=== PATIENT | female | born 1980 | race Two or more races ===

== ENCOUNTER 2018-04-06 06:10 | Day surgery (SDC) | payer OTHER ==
[2018-04-06] MEDS ORDERED: SODIUM CHLORIDE 1,000 ML IV STA (06:38)
--- NOTE | 2018-04-06 06:38 | PDOC ---
History of Present Illness - General Chief Complaint: Pain Stated Complaint: ABDOMINAL PAIN Time Seen by Provider: 04/06/18 06:38 History Source: Patient - History of Present Illness Initial Comments: 04/06/18 06:52 37-year-old female with history of lap band placed 10 years ago complaining of nausea vomiting and epigastric and upper abdominal pain for 4 days.Patient reports that pain is worse after eating. Patient is currently being evaluated for gastric sleeve surgery and was sent by surgeon Dr. STANTON evaluation. Denies chest pain, diaphoresis, dizziness, urinary symptoms, flank pain, fevers/chills Past medical history: Asthma, tubal ligation 04/06/18 06:54 Past History - Past Medical History Allergies/Adverse Reactions: Allergies Allergy/AdvReac Type Severity Reaction Status Date / Time No Known Allergies Allergy Verified 04/06/18 06:31 Home Medications: Ambulatory Orders Famotidine [Pepcid] 20 mg PO BID #60 tablet 04/06/18 Oxycodone HCl/Acetaminophen [Percocet 5-325 mg Tablet] 1 - 2 tab PO Q6H #28 tab MDD 4 04/06/18 COPD: No Other medical history: DENIES - Reproductive History Is Patient Now?: No - Suicide/Smoking/Psychosocial Hx Smoking History: Never smoked Review of Systems - Review of Systems Able to Perform ROS?: Yes Is the patient limited Finnish proficient: No Constitutional: No: Symptoms Reported, See HPI, Chills, Diaphoresis, Fever, Loss of Appetite, Malaise, Night Sweats, Weakness, Weight Stable, Unintentional Wgt. Loss, Unexplained wgt Loss, Other ABD/GI: Yes: Nausea, Vomiting, Abdominal cramping. No: Symptoms Reported, See HPI, Abdominal Distended, Abd. Pain w/ defecation, Blood Streaked Bowels, Constipated, Diarrhea, Difficulty Swallowing, Poor Appetite, Poor Fluid Intake, Rectal Bleeding, Indigestion, Tarry Stools, Other : No: Symptoms Reported, See HPI, Burning, Dysuria, Discharge, Frequency, Flank Pain, Hematuria, Incontinence, Pain, Urgency, Testicular Mass, Testicular Swelling, Lesions, Testicular Pain, Other Musculoskeletal: No: Symptoms Reported, See HPI, Back Pain, Gout, Joint Pain, Joint Swelling, Muscle Pain, Muscle Weakness, Neck Pain, Joint Stiffness, Other *Physical Exam - Vital Signs Last Vital Signs Temp Pulse Resp BP Pulse Ox 98.0 F 84 18 125/85 100 04/06/18 06:29 04/06/18 06:29 04/06/18 06:29 04/06/18 06:29 04/06/18 06:29 - Physical Exam General Appearance: Yes: Appropriately Dressed Respiratory/Chest: positive: Lungs Clear, Normal Breath Sounds Cardiovascular: positive: Regular Rhythm, Regular Rate Gastrointestinal/Abdominal: positive: Normal Bowel Sounds, Tender (Upper quadrant and epigastric area), Soft Musculoskeletal: positive: Normal Inspection Extremity: positive: Normal Capillary Refill, Normal Inspection, Normal Range of Motion Integumentary: positive: Normal Color, Dry, Warm Neurologic: positive: Fully Oriented, Alert, Normal Mood/Affect ED Treatment Course - LABORATORY CBC & Chemistry Diagram: 04/06/18 20:00 04/06/18 20:00 Progress Note - Progress Note Progress Note: A: ABDOMINAL PAIN p: CBC, CMP LIPASE UA URINE ABDOMINAL U/S: pending 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
[2018-04-06] MEDS ORDERED: ONDANSETRON 4 MG/2 ML VIAL IVPUSH ONE (06:39)
[2018-04-06] MEDS ORDERED: ONDANSETRON 4 MG/2 ML VIAL ONE (06:53)
[2018-04-06 07:01] LABS: URINE APPEARANCE CLEAR; URINE BILIRUBIN NEGATIVE (<2.0 mg/dL); URINE COLOR LTYELLOW; URINE GLUCOSE (UA) NEGATIVE (NEGATIVE); URINE KETONE NEGATIVE (NEGATIVE); URINE LEUK ESTERASE NEGATIVE (NEGATIVE); URINE NITRITE NEGATIVE (NEGATIVE); URINE PROTEIN NEGATIVE (NEGATIVE); URINE UROBILINOGEN NEGATIVE mg/dL (0.2-1.0)
[2018-04-06 07:03] LABS: HCG,QUALITATIVE URINE NEGATIVE
[2018-04-06 07:20] LABS: BASO % 0.7 % (0-2.0); EOS % 3.6 % (0-4.5); HEMATOCRIT 25.3 % (32.4-45.2); HEMOGLOBIN 7.9 GM/dL (10.7-15.3); LYMPH % 23.8 % (8-40); MCHC 31.3 g/dl (32.0-36.0); MEAN PLT VOLUME 7.3 fl (7.5-11.1); MONO % 5.8 % (3.8-10.2); NEUT % 66.1 % (42.8-82.8); PLATELET COUNT 485 K/MM3 (134-434); RBC 3.78 M/mm3 (3.60-5.2); RDW 20.7 % (11.6-15.6); WHITE BLOOD COUNT 8.4 K/mm3 (4.0-10.0)
[2018-04-06 07:20] LABS: EPI CELLS RARE /HPF (FEW); URINE MUCUS RARE
[2018-04-06 07:40] LABS: ALBUMIN 3.4 g/dl (3.4-5.0); ANION GAP 6 (8-16); BILIRUBIN,TOTAL 0.3 mg/dL (0.2-1.0); BLOOD UREA NITROGEN 9 mg/dL (7-18); CALCIUM 9.3 mg/dL (8.5-10.1); CHLORIDE 105 mmol/L (98-107); CO2 27 mmol/L (21-32); CREATININE 0.6 mg/dL (0.55-1.02); GLUCOSE,RANDOM 86 mg/dL (74-106); LIPASE 127 U/L (73-393); SGOT/AST 12 U/L (15-37); SGPT/ALT 17 U/L (12-78); SODIUM 138 mmol/L (136-145); TOT PROT 7.9 g/dl (6.4-8.2)
[2018-04-06 07:44] LABS: ALK PHOS 100 U/L (45-117)
--- NOTE | 2018-04-06 09:33 | PDOC ---
*Physical Exam - Vital Signs Last Vital Signs Temp Pulse Resp BP Pulse Ox 98.0 F 84 18 125/85 100 04/06/18 06:29 04/06/18 06:29 04/06/18 06:29 04/06/18 06:29 04/06/18 06:29 - Physical Exam General Appearance: Yes: Nourished, Appropriately Dressed. No: Apparent Distress ED Treatment Course - LABORATORY CBC & Chemistry Diagram: 04/06/18 06:52 04/06/18 06:52 - ADDITIONAL ORDERS Additional order review: Laboratory Results 04/06/18 04/06/18 06:52 06:40 Sodium 138 Potassium 4.0 Chloride 105 Carbon Dioxide 27 Anion Gap 6 L BUN 9 Creatinine 0.6 Creat Clearance w eGFR > 60 Random Glucose 86 Calcium 9.3 Total Bilirubin 0.3 AST 12 L ALT 17 Alkaline Phosphatase 100 Troponin I < 0.02 Total Protein 7.9 Albumin 3.4 Lipase 127 Urine Color Ltyellow Urine Appearance Clear Urine pH 5.0 Ur Specific [place] 1.018 Urine Protein Negative Urine Glucose (UA) Negative Urine Ketones Negative Urine Blood 1+ H Urine Nitrite Negative Urine Bilirubin Negative Urine Urobilinogen Negative Ur Leukocyte Esterase Negative Urine WBC (Auto) 1 Urine RBC (Auto) 2 Ur Epithelial Cells Rare Urine Mucus Rare Urine HCG, Qual Negative 04/06/18 06:52 RBC 3.78 MCV 67.0 L MCHC 31.3 L RDW 20.7 H MPV 7.3 L Neutrophils % 66.1 Lymphocytes % 23.8 Monocytes % 5.8 Eosinophils % 3.6 Basophils % 0.7 - Medications Given in the ED: ED Medications Discontinued Medications Generic Name Dose Route Start Last Admin Trade Name Freq PRN Reason Stop Dose Admin Sodium Chloride 1,000 mls @ 1,000 mls/hr 04/06/18 06:38 04/06/18 06:57 Normal Saline - IV 04/06/18 07:37 1,000 mls/hr ASDIR STA Administration Ondansetron HCl 4 mg 04/06/18 06:39 04/06/18 06:57 Zofran Injection IVPUSH 04/06/18 06:40 4 mg ONCE ONE Administration Medical Decision Making - Medical Decision Making 04/06/18 07:30 Patient received in sign out from PREMA Lopez. Patient is 37-year-old female status post gastric and pending a gastric sleeve to be performed by Dr. Rosario. Patient was placed for labs and ultrasound. Will call Dr. Rosario once results are reviewed. Patient otherwise comfortable. 04/06/18 09:31 Laboratory Tests 04/06/18 04/06/18 04/06/18 06:40 06:52 06:52 WBC 8.4 Hgb 7.9 L Hct 25.3 L Sodium 138 Potassium 4.0 Chloride 105 Carbon Dioxide 27 Anion Gap 6 L AST 12 L ALT 17 Troponin I < 0.02 Urine Blood 1+ H Ur Leukocyte Esterase Negative Urine WBC (Auto) 1 Urine RBC (Auto) 2 Urine HCG, Qual Negative Call placed to Dr. Rosario. Patient also ordered for type and screen. 04/06/18 09:32 Ultrasound shows hepatomegaly with slight dense and coarse echotexture suggestive of fatty filtration versus hepatocellular disease. Possible tiny gallbladder polyp measuring 2.5 mm. Follow-up ultrasound would be helpful. There is no evidence of acute cholecystitis. 04/06/18 10:[address] Rosario states keep patient nothing by mouth and will add patient to the OR schedule. *DC/Admit/Observation/Transfer Diagnosis at time of Disposition: Abdominal pain Qualifiers: Abdominal location: upper abdomen, unspecified Qualified Code(s): R10.10 - Upper abdominal pain, unspecified - Discharge Dispostion Decision to Admit order: Yes - Referrals Referrals: Reji Dominique [Primary Care Provider] - - Patient Instructions - Post Discharge Activity
[2018-04-06] MEDS ORDERED: SODIUM CHLORIDE 1,000 ML IV ONE (11:22)
[2018-04-06 11:48] VITALS: BMI 49.1
[2018-04-06 11:53] LABS: INR 1.12 (0.82-1.09); PROTHROMBIN TIME (PATIENT) 12.6 SEC (9.7-13.0)
--- NOTE | 2018-04-06 13:06 | HP ---
Admitting History and Physical - Admission Chief Complaint: Nausea, epigastric pain, dysphagia History of Present Illness: 37 female presents to ER for epigastric pain, nausea, dysphagia S/P lap band in the past Having symptoms due to the band History Source: Patient Limitations to Obtaining History: No Limitations - Past Medical History Gastrointestinal: Yes: Other (Morbod obesity) ...: No - Smoking History Smoking history: Never smoked - Alcohol/Substance Use Hx Alcohol Use: No Home Medications - Allergies Allergies/Adverse Reactions: Allergies Allergy/AdvReac Type Severity Reaction Status Date / Time No Known Allergies Allergy Verified 04/06/18 06:31 - Home Medications Home Medications: Ambulatory Orders NK [No Known Home Medication] 04/06/18 Family Disease History - Family Disease History Family History: Unremarkable Review of Systems - Review of Systems Constitutional: denies: Chills, Fever HENT: reports: No Symptoms Neck: reports: No Symptoms Cardiovascular: reports: No Symptoms Respiratory: reports: No Symptoms Gastrointestinal: reports: Abdominal Pain (Epigastric), Dysphagia, Nausea Neurological: reports: No Symptoms Pain Intensity: 4 Physical Examination Vital Signs: Vital Signs Temperature 98.1 F 04/06/18 11:48 Pulse Rate 72 04/06/18 11:48 Respiratory Rate 16 04/06/18 11:48 Blood Pressure 151/89 04/06/18 11:48 O2 Sat by Pulse Oximetry (%) 100 04/06/18 12:03 Constitutional: Yes: Calm HENT: Yes: WNL Neck: Yes: WNL Cardiovascular: Yes: WNL Respiratory: Yes: Regular Gastrointestinal: Yes: Soft, Abdomen, Obese, Tenderness, Epigastrium Neurological: Yes: Alert, Oriented Labs: CBC, BMP 04/06/18 06:52 04/06/18 06:52 Problem List - Problems (1) Nausea Code(s): R11.0 - NAUSEA (2) Dysphagia Code(s): R13.10 - DYSPHAGIA, UNSPECIFIED Qualifiers: Dysphagia type: unspecified Qualified Code(s): R13.10 - Dysphagia, unspecified (3) Epigastric abdominal pain Code(s): R10.13 - EPIGASTRIC PAIN (4) Gastric band malfunction Code(s): K95.09 - OTHER COMPLICATIONS OF GASTRIC BAND PROCEDURE Assessment/Plan Laparoscopic band removal possible open
[2018-04-06] MEDS ORDERED: ONDANSETRON 4 MG/2 ML VIAL IVPB PRN (13:56)
[2018-04-06] MEDS ORDERED: SODIUM CHLORIDE 1,000 ML IV SCH ×2 (14:00→19:15)
[2018-04-06] MEDS ORDERED: fentaNYL CITRATE 250 MCG/5 ML VIAL ONE (15:36)
[2018-04-06] MEDS ORDERED: ROCURONIUM BROMIDE 50 MG/5 ML VIAL ONE ×2 (15:36→18:19)
[2018-04-06] MEDS ORDERED: PROPOFOL 20 ML ONE (15:36)
[2018-04-06] MEDS ORDERED: MIDAZOLAM HCL 2 MG/2 ML SINGLE DOSE VIAL ONE (15:36)
[2018-04-06] MEDS ORDERED: DEXAMETHASONE SOD PHOSPHATE 4 MG/1 ML VIAL ONE ×2 (15:37→18:26)
[2018-04-06] MEDS ORDERED: LIDOCAINE HCL/PF 2% SDV 5ML VIAL ONE (15:37)
[2018-04-06] MEDS ORDERED: ceFAZolin SODIUM 1 GM VIAL ONE (16:55)
[2018-04-06] MEDS ORDERED: ceFAZolin SODIUM 1 GM VIAL IVPB ONE (17:00)
[2018-04-06] MEDS ORDERED: GLYCOPYRROLATE 0.2 MG/1 ML VIAL ONE (18:26)
[2018-04-06] MEDS ORDERED: NEOSTIGMINE METHYLSULFATE 0.5 MG/ML - 10 ML MDV ONE (18:26)
[2018-04-06] MEDS ORDERED: BUPIVACAINE HCL/PF (5 MG/ML) 30 ML VIAL IJ ONE (19:10)
[2018-04-06] MEDS ORDERED: ONDANSETRON 4 MG/2 ML VIAL IVPUSH PRN (19:15)
--- NOTE | 2018-04-06 19:26 | OP ---
Operative Note - Note: Operative Date: 04/06/18 Pre-Operative Diagnosis: Dysphagia. Nausea. Epigastric pain. Malfunctioning gastric band Operation: Diagnostic laparoscopy. Laparoscopic extensive lysis of adhesions. Laparoscopic removal of gastric band, port, and components. EGD Post-Operative Diagnosis: Other (Same as preop as well as dense intraabdominal adhesions) Surgeon: Tejas Rosario Inspector Returned Materials: Princess Acosta Anesthesia: General Specimens Removed: Gastric band, port, and components Estimated Blood Loss (mls): 30 Operative Report Dictated: Yes
[2018-04-06] MEDS ORDERED: PROMETHAZINE HCL 25 MG/1 ML VIAL IVPUSH PRN (19:27)
[2018-04-06] MEDS ORDERED: ACETAMINOPHEN 1000 MG/100 ML VIAL (NON FORMULARY) IVPB ONE (19:45)
--- NOTE | 2018-04-06 20:23 | SURG ---
Surgery Insurance Billing Specialist Note Insurance Billing Specialist: Princess Acosta PA-C Date of Service: 04/06/18 Diagnosis: Dysphagia. Nausea. Epigastric pain. Malfunctioning gastric band Procedure: Diagnostic laparoscopy. Laparoscopic extensive lysis of adhesions. Laparoscopic removal of gastric band, port, and components. EGD I was present for the entirety of the operative procedure. For further detail, please refer to operative report. Visit type - Case Type Case Type: ED Admission - Emergency Emergency Visit: Yes ED Registration Date: 04/06/18 Care time: The patient presented to the Emergency Department on the above date and was hospitalized for further evaluation of their emergent condition. - New patient This patient is new to me today: Yes Date on this admission: 04/06/18
[2018-04-06 20:28] LABS: HEMATOCRIT 25.6 % (32.4-45.2); HEMOGLOBIN 7.7 GM/dL (10.7-15.3); MCH 20.1 pg (25.7-33.7); MCHC 30.2 g/dl (32.0-36.0); MEAN CELL VOLUME 66.8 fl (80-96); MEAN PLT VOLUME 7.1 fl (7.5-11.1); PLATELET COUNT 507 K/MM3 (134-434); RBC 3.84 M/mm3 (3.60-5.2); RDW 20.4 % (11.6-15.6); WHITE BLOOD COUNT 11.6 K/mm3 (4.0-10.0)
[2018-04-06 20:55] LABS: ANION GAP 8 (8-16); BLOOD UREA NITROGEN 8 mg/dL (7-18); CALCIUM 8.8 mg/dL (8.5-10.1); CHLORIDE 105 mmol/L (98-107); CO2 25 mmol/L (21-32); CREATININE 0.7 mg/dL (0.55-1.02); GLUCOSE,RANDOM 114 mg/dL (74-106); POTASSIUM 4.2 mmol/L (3.5-5.1); SODIUM 138 mmol/L (136-145)
[2018-04-06] MEDS: morphine SULFATE 4 MG/ML VIAL IVPUSH PRN (21:47)
[2018-04-06] MEDS ORDERED: ENOXAPARIN NA (PORCINE) 40 MG/0.4 ML DISP.SYRIN SQ ONE (22:00)
[2018-04-06] MEDS ORDERED: FAMOTIDINE 20 MG/50 ML IVPB 20 MG/50 ML MG IVPB SCH (22:00)
[2018-04-07] MEDS: morphine SULFATE 4 MG/ML VIAL IVPUSH PRN (02:01)
--- NOTE | 2018-04-07 07:02 | OP ---
DATE OF OPERATION: 04/06/2018 SURGEON: Daryn Rosario M.D. ALTERATION TAILOR: AMPARO Acosta PREOPERATIVE DIAGNOSES: 1. Dysphagia. 2. Epigastric pain. 3. Nausea. 4. Malfunctioning gastric band. POSTOPERATIVE DIAGNOSES: 1. Dysphagia. 2. Epigastric pain. 3. Nausea. 4. Malfunctioning gastric band. 5. Dense intra-abdominal adhesions. PROCEDURES PERFORMED: 1. Diagnostic laparoscopy. 2. Extensive laparoscopic lysis of adhesions. 3. Laparoscopic removal of gastric band port and components. 4. Laparoscopic capsulotomy. 5. Esophagogastroduodenoscopy. SPECIMEN: Gastric band port and components. ANESTHESIA: GET. ESTIMATED BLOOD LOSS: 30 mL. DRAINS: None. TUBES: An 18-Macedonian OG tube. INDICATIONS: The patient is a 37-year-old female who presented to the emergency room because of abdominal pain, nausea and dysphagia, consistent with a malfunctioning gastric band. Because of this, she was consented for laparoscopic removal of her gastric band, port and components, possible open, with endoscopy. The risks and benefits of the procedure were explained. These included bleeding, infection, hernia, MO, DVT, PE, injury to surrounding structures (including the esophagus, stomach, liver, spleen, colon, other intra-abdominal organs), nerve injury, vessel injury, gastric leak, gastric obstruction, stricture, prolonged dysphagia, epigastric pain and nausea, sepsis, abscess formation, weight regain, as some of the complications. She understood and signed informed consent. DESCRIPTION OF PROCEDURE: The patient was placed supine on the operating room table. She underwent general endotracheal intubation. The abdomen was prepped and draped in the usual sterile fashion. A timeout was performed. An OG tube was placed by Anesthesia to suction the stomach. An incision was made superior and to the left of the umbilicus. A Veress needle inserted and pneumoperitoneum established. Subsequently, the Veress needle was removed, and a 5-mm trocar was placed under direct visualization of the laparoscope. Immediately it was noted that there were dense intra-abdominal adhesions. Because of this, the right lateral trocar attempted to be placed; however, again, because of the lack of visualization, attention was then paid to the right subcostal region. An incision was made at that area and a 5-mm trocar placed. The laparoscope was then moved to that position in order to aid in visualization of the other trocars. The 15-mm trocar was then replaced superior to the left of the umbilicus. A 5-mm trocar was placed superior to the right of the umbilicus, and a 5-mm trocar placed in the right subcostal region. Because of the dense adhesions, a liver retractor was not able to be placed at the beginning of the case. These adhesions were carefully taken down with a combination of scissor, hook electrocautery and LigaSure. This took an extensive period of time. Once all adhesions were taken down, the stomach was able to be identified. There were further dense adhesions up to the level of the liver and abdominal wall that needed further dissection. After these adhesions were taken down, a stab wound was made in the subxiphoid area and a Libby clamp inserted. The Libby clamp was removed and a liver retractor inserted to elevate the liver. This was placed to the post at the side of the bed, and the patient was placed in steep reverse Trendelenburg position. Further dense adhesions were noted again which were carefully taken down. Eventually the band tubing was identified and hook electrocautery used over the level of the band tubing. The band tubing was followed to the level of the band which was noted to have slipped and was densely adherent around the level of the stomach. Carefully, the band was dissected, cut and freed from around the stomach. The band and its attachment components were removed from the abdominal cavity and sent off the field. Hemostasis was noted. Copious irrigation and suction were performed until clear. Surgicel dressing was placed in the area in order to aid with hemostasis. In addition, capsulotomy was performed, freeing the overlying capsule around the stomach, to aid with fraying of the scar tissue from the band. At this point, the Kelvin liver retractor was removed, and the port was palpated below the left subcostal region towards the midline. Pneumoperitoneum was desufflated. All trocars were removed. The port was dissected down to the level of the fascia and fully dissected and removed. All parts were noted to be intact and all parts matched. 3-0 Vicryl suture was placed at the deep dermal tissue at the level of the port. Upper endoscopy was also performed in order to further assess the anatomy. No obstruction or leak was noted during the endoscopy. The endoscope was used to suction the stomach and removed. All skin incisions were closed using 4-0 Biosyn, and Marcaine was injected. Sterile dressings were applied. The patient tolerated this procedure well. The OG tube was removed and she was transferred to the recovery room in stable condition. DARYN ROSARIO M.D. [id number]
[2018-04-07] MEDS ORDERED: ONDANSETRON 4 MG/2 ML VIAL IVPUSH PRN (07:44)
[2018-04-07] MEDS ORDERED: morphine SULFATE 4 MG/ML VIAL IVPUSH PRN (07:44)
[2018-04-07] MEDS ORDERED: SODIUM CHLORIDE 1,000 ML IV SCH (07:44)
--- NOTE | 2018-04-07 08:25 | PN ---
Progress Note (short form) - Note Progress Note: POD #1 - s/p lap gastric band removal under general anesthesia. VSS. Pt. doing well, just coming back from test. No complaints. No apparent anesthetic complications noted. Continue current care.
[2018-04-07 09:18] VITALS: BP 128/83; PULSE 67; TEMP 98.9
[2018-04-07] MEDS ORDERED: FAMOTIDINE 20 MG/50 ML IVPB 20 MG/50 ML MG IVPB SCH (10:00)
--- NOTE | 2018-04-07 13:09 | PN ---
Progress Note (short form) - Note Progress Note: POD 1 Pain controlled AVSS Abd soft UGI: no leak/obstruction Clears Discharge planning Problem List - Problems (1) Nausea Code(s): R11.0 - NAUSEA (2) Dysphagia Code(s): R13.10 - DYSPHAGIA, UNSPECIFIED Qualifiers: Dysphagia type: unspecified Qualified Code(s): R13.10 - Dysphagia, unspecified (3) Epigastric abdominal pain Code(s): R10.13 - EPIGASTRIC PAIN (4) Gastric band malfunction Code(s): K95.09 - OTHER COMPLICATIONS OF GASTRIC BAND PROCEDURE
--- NOTE | 2018-04-08 14:59 | PATH ---
Surgical Pathology Report Patient Name: JOSE KEANE Med. Rec. #: [id number] /Age/Gender: 1980 (Age: 37) / F Account: <[id number]> Location: EMERGENCY ROOM Taken: 04/06/2018 Received: 04/07/2018 Reported: 04/08/2018 Physicians: Tejas Rosario M.D. Specimen(s) Received GASTRIC BAND AND COMPONENT PORT Clinical History Malfunctioning gastric band, from epigastric pain, dysphagia Final Diagnosis GASTRIC BAND, PORT AND COMPONENTS, REMOVAL: GASTRIC BAND AND PORT. MACROSCOPIC DIAGNOSIS. Electronically Signed Kaila Sidhu M.D. Gross Description Received fresh labeled "gastric band port and components," is a 4 cm in diameter gastric band. There is a 30.5 cm in length portion of white tubing separately received within the same container. Also received within the same container is a 2.5 cm in diameter x 1.5 cm white, circular device, consistent with a port. The port displays a 10.5 cm in length portion of tubing extending from one aspect. No soft tissue is present. No sections are submitted, gross only. DL/04/07/2018 saudi/04/07/2018
--- NOTE | 2018-04-22 12:17 | SURG ---
Surgery Environmental Engineer Note Environmental Engineer: Princess Acosta PA-C Date of Service: 04/06/18 Diagnosis: Dysphagia. Nausea. Epigastric pain. Malfunctioning gastric band Procedure: Diagnostic laparoscopy. Laparoscopic extensive lysis of adhesions. Laparoscopic removal of gastric band, port, and components. EGD I was present for the entirety of the operative procedure. For further detail, please refer to operative report. Visit type - Case Type Case Type: ED Admission - Emergency Emergency Visit: Yes Care time: The patient presented to the Emergency Department on the above date and was hospitalized for further evaluation of their emergent condition. - New patient This patient is new to me today: Yes Date on this admission: 04/06/18
== END 2018-04-07 13:30 | disposition home or self-care (01) ==
LOC: JER 06:10 → JERBED 10:51 → JASUSAT 10:51 → UNDOADMIN 10:51 → J6S 11:35 → JERBED 11:35 → J6S 04-07 08:00 → JASUSAT 04-07 10:51 → UNDODISIN 04-07 13:30 → JASUSAT 04-07 13:30
PROVIDERS: ATTEND Surgery
PROC: 0DN64ZZ Release Stomach, Percutaneous Endoscopic Approach (ICD-10-PCS; 2018-04-06)
PROC: 0DJ08ZZ Inspection of Upper Intestinal Tract, Via Natural or Artificial Opening Endoscopic (ICD-10-PCS; 2018-04-06)
PROC: 0DP64CZ Removal of Extraluminal Device from Stomach, Percutaneous Endoscopic Approach (ICD-10-PCS; principal; 2018-04-06 14:00)
DX: T85.518A Breakdown (mechanical) of other gastrointestinal prosthetic devices, implants and grafts, initial encounter (principal); K95.09 Other complications of gastric band procedure; Y93.89 Activity, other specified; Y92.89 Other specified places as the place of occurrence of the external cause; R10.13 Epigastric pain; R13.10 Dysphagia, unspecified; R11.0 Nausea; K66.0 Peritoneal adhesions (postprocedural) (postinfection)
CPT/HCPCS: 36415; 74241-TC-FY; 76700-TC; 80048; 80053; 81003; 81015; 83690; 84484; 84703; 85025; 85027; 85610; 86850; 86900; 86901; 88300-TC; 94760; 99285-25; J7030

== ENCOUNTER 2018-06-08 06:57 | Day surgery (SDC) | payer OTHER ==
[2018-06-08 07:55] VITALS: BMI 48.7
[2018-06-08] MEDS ORDERED: PROPOFOL 20 ML ONE (08:37)
[2018-06-08] MEDS ORDERED: LIDOCAINE HCL/PF 2% SDV 5ML VIAL ONE (08:38)
[2018-06-08] MEDS ORDERED: TETRACAINE/BENZOCAINE/BUTAMBEN 20 GM SPR TP ONE (08:44)
[2018-06-08 09:04] VITALS: TEMP 98.2
[2018-06-08 09:54] VITALS: BP 147/84; PULSE 69
--- NOTE | 2018-08-03 19:54 | SPEC ---
DATE OF OPERATION: 06/08/2018 PREOPERATIVE DIAGNOSIS: Evaluate anatomy prior to bariatric surgery. POSTOPERATIVE DIAGNOSIS: Normal gross anatomy. PROCEDURE: Upper endoscopy, esophagogastroduodenoscopy. ESTIMATED BLOOD LOSS: 0 mL. ANESTHESIA: MAC. REASON FOR PROCEDURE: This a 37-year-old female who underwent an upper endoscopy plus EGD to evaluate her anatomy prior to endoscopy. Risks and benefits were explained, this included injury to the oral cavity, esophagus, GE junction, stomach, duodenum, pylorus per with perforation, [place], DVT, PE as some of the complications. She understood and signed the consent. DESCRIPTION OF PROCEDURE: Patient was placed in left lateral decubitus position. Timeout was performed. Endoscopy was inserted in the patient's mouth and directed into the esophagus, GE junction, and stomach. No gross anatomical abnormalities were noted. The stomach suctioned, the endoscope fully removed. Patient tolerated procedure well, transferred to recovery in stable condition. Ernestina [id number] [email or web address]
== END 2018-06-08 09:40 | disposition home or self-care (01) ==
LOC: JASU-ENDO 06:57
PROVIDERS: ATTEND Surgery
PROC: 0DJ08ZZ Inspection of Upper Intestinal Tract, Via Natural or Artificial Opening Endoscopic (ICD-10-PCS; principal; 2018-06-08 08:30)
DX: Z01.818 Encounter for other preprocedural examination (principal); E66.01 Morbid (severe) obesity due to excess calories
CPT/HCPCS: 84703

== ENCOUNTER 2019-03-28 09:21 | Inpatient (IN) | payer OTHER ==
[2019-03-23 16:47] VITALS: BMI 51.7
[2019-03-28] MEDS ORDERED: ALBUTEROL SO4 8 GM HFA INHALER IH PRN (10:57)
--- NOTE | 2019-03-28 11:02 | HP ---
Admitting History and Physical - Admission Chief Complaint: Morbid obesity History Source: Patient Limitations to Obtaining History: No Limitations - Past Medical History Pulmonary: Yes: Sleep Apnea Gastrointestinal: Yes: Other (Morbod obesity) ...LMP: 03/22/19 - Past Surgical History Additional Past Surgical History: C section x 2 Breast reduction Lap gastric band Lap gastric band removal - Smoking History Smoking history: Never smoked - Alcohol/Substance Use Hx Alcohol Use: No Home Medications - Allergies Allergies/Adverse Reactions: Allergies Allergy/AdvReac Type Severity Reaction Status Date / Time latex Allergy Verified 03/23/19 16:40 No Known Drug Allergies Allergy Verified 03/23/19 16:41 - Home Medications Home Medications: Ambulatory Orders Albuterol Sulfate Inhaler - [Ventolin HFA Inhaler -] 1 - 2 inh PO QID PRN Ascorbic Acid [Vitamin C] 500 mg PO DAILY 03/23/19 Cholecalciferol (Vitamin D3) [Vitamin D3] 5,000 mg PO WEEKLY 03/23/19 Ferrous Sulfate [Iron] 1 tab PO DAILY 03/23/19 Famotidine [Pepcid] 20 mg PO BID #60 tablet 03/28/19 Oxycodone HCl/Acetaminophen [Percocet 5-325 mg Tablet] 1 - 2 tab PO Q6H #28 tab MDD 4 03/28/19 Family Disease History - Family Disease History Family History: Unremarkable Review of Systems - Review of Systems Constitutional: denies: Chills, Fever Neck: reports: No Symptoms Cardiovascular: reports: No Symptoms Respiratory: reports: No Symptoms Gastrointestinal: reports: No Symptoms Neurological: reports: No Symptoms Pain Intensity: 0 Physical Examination Vital Signs: Vital Signs Temperature 98.6 F 03/28/19 09:55 Pulse Rate 74 03/28/19 09:55 Respiratory Rate 18 03/28/19 09:55 Blood Pressure 146/90 03/28/19 09:55 O2 Sat by Pulse Oximetry (%) Constitutional: Yes: No Distress Neck: Yes: WNL Cardiovascular: Yes: WNL Respiratory: Yes: WNL Gastrointestinal: Yes: Soft, Abdomen, Obese. No: Tenderness Neurological: Yes: Alert, Oriented Problem List - Problems (1) Morbid obesity Code(s): E66.01 - MORBID (SEVERE) OBESITY DUE TO EXCESS CALORIES (2) Obstructive sleep apnea Code(s): G47.33 - OBSTRUCTIVE SLEEP APNEA (ADULT) (PEDIATRIC) (3) BMI 50.0-59.9, adult Code(s): Z68.43 - BODY MASS INDEX (BMI) 50-59.9, ADULT Assessment/Plan Laparoscopic possible open vertical sleeve gastrectomy possible liver biopsy possible upper endoscopy
[2019-03-28] MEDS ORDERED: MIDAZOLAM HCL 2 MG/2 ML SINGLE DOSE VIAL ONE (12:24)
[2019-03-28] MEDS ORDERED: fentaNYL CITRATE 250 MCG/5 ML VIAL ONE (12:44)
[2019-03-28] MEDS ORDERED: PROPOFOL 20 ML ONE ×2 (12:45→14:45)
[2019-03-28] MEDS ORDERED: ROCURONIUM BROMIDE 50 MG/5 ML VIAL ONE ×2 (12:46)
[2019-03-28] MEDS ORDERED: BUPIVACAINE HCL 0.25% 125 MG/50 ML VIAL ONE (13:04)
[2019-03-28] MEDS ORDERED: SODIUM CHLORIDE 0.9% P/F 10 ML VIAL IJ ONE (13:13)
[2019-03-28] MEDS ORDERED: ceFAZolin SODIUM 1 GM VIAL ONE (13:13)
[2019-03-28] MEDS ORDERED: ONDANSETRON 4 MG/2 ML VIAL ONE (14:24)
[2019-03-28] MEDS ORDERED: DEXAMETHASONE SOD PHOSPHATE 4 MG/1 ML VIAL ONE (14:24)
[2019-03-28] MEDS ORDERED: BUPIVACAINE HCL/PF 0.25% (2.5MG/ML) 10 ML VIAL IJ ONE (14:46)
--- NOTE | 2019-03-28 14:57 | OP ---
Operative Note - Note: Operative Date: 03/28/19 Pre-Operative Diagnosis: Morbid obesity. BMI 51.8. Sleep Apnea Operation: Laparoscopic vertical sleeve gastrectomy. Laparoscopic lysis of adhesions. Laparoscopic wedge liver biopsy Post-Operative Diagnosis: Same as Pre-op (as well as hepatomegaly) Surgeon: Tejas Rosario Freight Solicitor: Mynor Louie Anesthesia: General Specimens Removed: Greater curvature of stomach. Liver biopsy Estimated Blood Loss (mls): 30 Drains & Tubes with Location: 36 Fr [address]ie Operative Report Dictated: Yes
[2019-03-28] MEDS ORDERED: FAMOTIDINE 20 MG/50 ML IVPB 20 MG/50 ML MG IVPB ONE (15:00)
[2019-03-28] MEDS ORDERED: ACETAMINOPHEN 1000 MG/100 ML VIAL (NON FORMULARY) IVPB ONE (15:00)
[2019-03-28] MEDS ORDERED: ACETAMINOPHEN INJECTION 100 ML IVPB ONE (15:00)
[2019-03-28] MEDS ORDERED: METOCLOPRAMIDE HCL INJECTION 10 MG/2 ML VIAL ONE (15:00)
[2019-03-28] MEDS ORDERED: SODIUM CHLORIDE 1,000 ML IV SCH (15:00)
[2019-03-28] MEDS ORDERED: FAMOTIDINE 20 MG PREMIXED IVPB IVPB ONE (15:05)
[2019-03-28] MEDS ORDERED: METOCLOPRAMIDE HCL INJECTION 10 MG/2 ML VIAL IVPUSH ONE (15:10)
[2019-03-28 16:01] LABS: HEMATOCRIT 34.9 % (32.4-45.2); HEMOGLOBIN 11.8 GM/dl (10.7-15.3); MCH 29.5 pg (25.7-33.7); MCHC 33.8 g/dl (32.0-36.0); MEAN CELL VOLUME 87.3 fl (80-96); MEAN PLT VOLUME 8.6 fl (7.5-11.1); PLATELET COUNT 346 K/MM3 (134-434); RBC 3.99 M/mm3 (3.60-5.2); RDW 19.2 % (11.6-15.6); WHITE BLOOD COUNT 10.9 K/mm3 (4.0-10.8)
[2019-03-28] MEDS ORDERED: PROMETHAZINE HCL 25 MG/1 ML VIAL IVPUSH PRN (16:12)
[2019-03-28] MEDS ORDERED: ONDANSETRON 4 MG/2 ML VIAL IVPUSH PRN (16:12)
[2019-03-28 16:13] LABS: ALBUMIN 3.5 g/dl (3.4-5.0); ALK PHOS 79 U/L (45-117); ANION GAP 11 MMOL/L (8-16); BILIRUBIN,TOTAL 0.4 mg/dl (0.2-1); BLOOD UREA NITROGEN 7 mg/dl (7-18); CALCIUM 9.4 mg/dl (8.5-10); CHLORIDE 104 mmol/L (98-107); CO2 22 mmol/L (21-32); CREATININE 0.6 mg/dl (0.55-1.3); GLUCOSE,RANDOM 123 mg/dl (74-106); POTASSIUM 3.9 mmol/L (3.5-5.1); SGOT/AST 26 U/L (15-37); SGPT/ALT 29 U/L (13-61); SODIUM 137 mmol/L (136-145); TOT PROT 6.7 g/dl (6.4-8.2)
[2019-03-28] MEDS: ACETAMINOPHEN 1000 MG/100 ML VIAL (NON FORMULARY) IVPB SCH ×2 (17:09→21:22)
[2019-03-28] MEDS: METOCLOPRAMIDE HCL INJECTION 10 MG/2 ML VIAL IVPUSH SCH ×2 (17:10→21:22)
[2019-03-28] MEDS: ONDANSETRON 4 MG/2 ML VIAL IVPUSH SCH ×3 (17:10→23:45)
[2019-03-28] MEDS ORDERED: HYDROmorphone HCL CARPU-JECT 1 MG/1 ML DISP.SYRIN ONE (18:32)
[2019-03-28] MEDS: HYDROmorphone HCL CARPU-JECT 2 MG/1 ML DISP.SYRIN IVPB PRN (18:39)
[2019-03-28] MEDS: ENOXAPARIN NA (PORCINE) 40 MG/0.4 ML DISP.SYRIN SQ SCH (21:22)
[2019-03-28] MEDS: FAMOTIDINE 20 MG/50 ML IVPB 20 MG/50 ML MG IVPB SCH (21:22)
[2019-03-29] MEDS: HYDROmorphone HCL CARPU-JECT 2 MG/1 ML DISP.SYRIN IVPB PRN (01:34)
[2019-03-29] MEDS: ACETAMINOPHEN 1000 MG/100 ML VIAL (NON FORMULARY) IVPB SCH ×2 (03:22→09:14)
[2019-03-29] MEDS: METOCLOPRAMIDE HCL INJECTION 10 MG/2 ML VIAL IVPUSH SCH ×3 (03:23→15:18)
[2019-03-29] MEDS: ONDANSETRON 4 MG/2 ML VIAL IVPUSH SCH ×4 (03:23→15:17)
[2019-03-29 06:45] VITALS: PULSE 62
[2019-03-29 08:59] LABS: ALBUMIN 3.4 g/dl (3.4-5.0); ALK PHOS 81 U/L (45-117); ANION GAP 8 MMOL/L (8-16); BILIRUBIN,TOTAL 0.5 mg/dl (0.2-1); BLOOD UREA NITROGEN 6 mg/dl (7-18); CALCIUM 9.4 mg/dl (8.5-10); CHLORIDE 104 mmol/L (98-107); CO2 24 mmol/L (21-32); CREATININE 0.6 mg/dl (0.55-1.3); GLUCOSE,RANDOM 91 mg/dl (74-106); POTASSIUM 4.3 mmol/L (3.5-5.1); SGOT/AST 24 U/L (15-37); SGPT/ALT 27 U/L (13-61); SODIUM 136 mmol/L (136-145)
[2019-03-29 09:11] LABS: HEMATOCRIT 36.6 % (32.4-45.2); HEMOGLOBIN 12.1 GM/dl (10.7-15.3); MCHC 33.2 g/dl (32.0-36.0); MEAN CELL VOLUME 87.3 fl (80-96); MEAN PLT VOLUME 8.9 fl (7.5-11.1); PLATELET COUNT 362 K/MM3 (134-434); RBC 4.19 M/mm3 (3.60-5.2); RDW 18.6 % (11.6-15.6); WHITE BLOOD COUNT 9.7 K/mm3 (4.0-10.8)
[2019-03-29] MEDS: ENOXAPARIN NA (PORCINE) 40 MG/0.4 ML DISP.SYRIN SQ SCH (09:15)
[2019-03-29] MEDS: FAMOTIDINE 20 MG/50 ML IVPB 20 MG/50 ML MG IVPB SCH (09:16)
--- NOTE | 2019-03-29 11:31 | SPEC ---
DATE OF OPERATION: 03/28/2019 SURGEON: Tejas Rosario MD CREATIVE SERVICES DESIGNER: Mynor Louie MD PREOPERATIVE DIAGNOSES: 1. Morbid obesity. 2. Body mass index 51.8. 3. Obstructive sleep apnea. POSTOPERATIVE DIAGNOSES: 1. Morbid obesity. 2. Body mass index 51.8. 3. Obstructive sleep apnea. 4. Hepatomegaly. 5. Intra-abdominal adhesions. PROCEDURE: 1. Laparoscopic vertical sleeve gastrectomy. 2. Laparoscopic wedge liver biopsy. 3. Laparoscopic lysis of adhesions. SPECIMEN: 1. Greater curvature of the stomach. 2. Liver biopsy. ESTIMATED BLOOD LOSS: 30 mL DRAIN: None. ANESTHESIA: GET. BOUGIE SIZE: 36-[place]ian REASON FOR PROCEDURE: This is a 38-year-old female who presents for weight loss options. After describing different options, she decided to proceed with a laparoscopic, possible open, vertical sleeve gastrectomy, possible liver biopsy, and upper endoscopy. The patient was seen by the respective subspecialties and cleared for surgery. The risks and benefits of the procedure were explained. These included bleeding, infection, hernia, IA, DVT, PE, injury to surrounding structures including the liver, colon, bowel, spleen, esophagus, vessel injury, nerve injury, weight regain, gastric leak, staple line leak, sleeve leak, obstruction, vitamin deficiency, hair loss and as some of the possible complications. The patient understood and signed informed consent. DESCRIPTION OF PROCEDURE: The patient was placed supine on the operating room table. The patient underwent general endotracheal intubation. The arms were brought out at 90 degrees and secured. A footboard was placed and the legs were secured laterally with padding. The abdomen was prepped and draped in the usual sterile fashion. A timeout was performed. At the beginning of the case, there were adhesions to the anterior abdominal wall. To gain access to visualize the stomach, the adhesions had to be carefully lysed. This was done using careful dissection. Hemostasis was noted. An incision was made in the left upper quadrant and a Veress needle inserted. Pneumoperitoneum was established. Subsequently, the Veress needle was removed and a 5-mm trocar was placed under direct visualization with the laparoscope. The laparoscopic camera was then inserted and inspection of the abdominal cavity was performed. An incision was then made in the supraumbilical area and a 15-mm trocar was placed under direct visualization. A 5-mm trocar was then placed in the right upper quadrant and a 5-mm trocar was placed below the left subcostal margin. A stab wound was made in the subxiphoid area and a Libby clamp inserted and removed to dilate the tract. A Kelvin liver retractor was inserted. The post was secured at the bedside by the nursing staff. The patient was placed in steep reverse Trendelenburg position and the Kelvin liver retractor was used to secure the liver towards the anterior abdominal wall. The pylorus was identified and 6 cm proximal to it, the lesser sac was entered using the LigaSure device. All lateral attachments to the greater curvature of the stomach, including the short gastric vessels, were ligated using the LigaSure device toward the gastrosplenic and gastrophrenic ligaments. Once this was done in its entirety, it was confirmed that all tubes within the nasal or oropharyngeal cavity, including a temperature probe were removed by Anesthesia. The bougie was then inserted by Anesthesia. Transection of the stomach was then begun staying adjacent to the bougie but away from the angularis. Transection of the stomach was performed near the portion of the stomach where the lesser sac was entered. Two laparoscopic Endo-ERIC black gerald were used at this location. Laparoscopic Endo ERIC purple staple loads were then used for the remainder of the transection until the greater curvature of the stomach was fully transected. This was done staying close to the bougie. Care was taken to stay away from the angle of His cephalad. The staple line was then inspected. Hemostasis was identified. A leak test was then performed. It was clamped distally to the staple line. Irrigation solution was placed in the left upper quadrant and air was insufflated by Anesthesia into the sleeve. No leaks were identified. No obstruction was identified. This was done through the entirety of the staple line. The stomach was suctioned and the bougie removed fully intact under direct visualization. At this point, the irrigation solution was suctioned and again, hemostasis was noted. The 15-mm supraumbilical trocar was then removed and the greater curvature specimen removed from the site using a sponge stick putnam. A Jean Marie-Robin device was then used to close the fascia with a 0 Vicryl suture at the site. Again, hemostasis was noted. A wedge liver biopsy was then performed. The left lobe of the liver was identified. A portion of the edge of the left lobe of the liver was grasped. Using electrocautery, a wedge of the left liver was excised. The specimen was removed and sent off the field. Hemostasis of the wedge liver biopsy site was attained and noted using electrocautery. The Kelvin liver retractor was then removed under direct visualization. Pneumoperitoneum was desufflated. Hemostasis was noted at all incision sites and Marcaine was injected at all incision sites. A 3-0 Vicryl suture was used to close the deep subcutaneous tissue at the 15-mm incision site. All incision sites were closed using 4-0 Biosyn. Sterile dressings were applied. The patient tolerated the procedure well and was transferred to the recovery room in stable condition. Ernestina VALERIO/[id number]
[2019-03-29 15:07] VITALS: BP 134/83; TEMP 98.3
[2019-03-29] MEDS ORDERED: oxyCODONE HCL 5 MG TABLET PO PRN (15:07)
--- NOTE | 2019-03-29 15:09 | PN ---
Progress Note (short form) - Note Progress Note: POD 1 Nausea/pain controlled Vital Signs Period Temp Pulse Resp BP Sys/Rojas Pulse Ox Last 24 Hr 97.6 F-98.6 F 62-78 18-23 107-144/67-83 96-100 CBC,CMP WBC 9.7 K/mm3 (4.0-10.8) 03/29/19 07:55 RBC 4.19 M/mm3 (3.60-5.2) 03/29/19 07:55 Hgb 12.1 GM/dl (10.7-15.3) 03/29/19 07:55 Hct 36.6 % (32.4-45.2) 03/29/19 07:55 MCV 87.3 fl (80-96) 03/29/19 07:55 MCH 29.0 pg (25.7-33.7) 03/29/19 07:55 MCHC 33.2 g/dl (32.0-36.0) 03/29/19 07:55 RDW 18.6 % (11.6-15.6) H 03/29/19 07:55 Plt Count 362 K/MM3 (134-434) 03/29/19 07:55 MPV 8.9 fl (7.5-11.1) 03/29/19 07:55 Sodium 136 mmol/L (136-145) 03/29/19 07:55 Potassium 4.3 mmol/L (3.5-5.1) 03/29/19 07:55 Chloride 104 mmol/L (98-107) 03/29/19 07:55 Carbon Dioxide 24 mmol/L (21-32) 03/29/19 07:55 Anion Gap 8 MMOL/L (8-16) 03/29/19 07:55 BUN 6 mg/dl (7-18) L 03/29/19 07:55 Creatinine 0.6 mg/dl (0.55-1.3) 03/29/19 07:55 Creat Clearance w eGFR 110.72 (>60) 03/29/19 07:55 Random Glucose 91 mg/dl (74-106) 03/29/19 07:55 Calcium 9.4 mg/dl (8.5-10) 03/29/19 07:55 Total Bilirubin 0.5 mg/dl (0.2-1) 03/29/19 07:55 AST 24 U/L (15-37) 03/29/19 07:55 ALT 27 U/L (13-61) 03/29/19 07:55 Alkaline Phosphatase 81 U/L (45-117) 03/29/19 07:55 Total Protein 7.0 g/dl (6.4-8.2) 03/29/19 07:55 Albumin 3.4 g/dl (3.4-5.0) 03/29/19 07:55 UGI: no leak/obstruction Clears Discharge home Problem List - Problems (1) Morbid obesity Code(s): E66.01 - MORBID (SEVERE) OBESITY DUE TO EXCESS CALORIES (2) Obstructive sleep apnea Code(s): G47.33 - OBSTRUCTIVE SLEEP APNEA (ADULT) (PEDIATRIC) (3) BMI 50.0-59.9, adult Code(s): Z68.43 - BODY MASS INDEX (BMI) 50-59.9, ADULT
[2019-03-29] MEDS ORDERED: SODIUM CHLORIDE 1,000 ML IV SCH (15:15)
--- NOTE | 2019-03-29 15:15 | PN ---
Progress Note (short form) - Note Progress Note: POD s/p lap gastric sleeve. Pain is well controlled, no nausea/vomiting. Doing well with no anesthetic issues/complications
--- NOTE | 2019-03-31 13:39 | PATH ---
Surgical Pathology Report Patient Name: JOSE KEANE Med. Rec. #: [id number] /Age/Gender: 1980 (Age: 38) / F Account: [id number] Location: [facility] MED-SURG Taken: 03/28/2019 Received: 03/28/2019 Reported: 03/31/2019 Physicians: Tejas Rosario M.D. Specimen(s) Received A: GREATER CURVATURE STOMACH B: LIVER BIOPSY Clinical History Morbid obesity Final Diagnosis A. GREATER CURVATURE STOMACH, LAPAROSCOPIC VERTICAL SLEEVE GASTRECTOMY: SEGMENT OF STOMACH SHOWING MODERATELY CHRONIC GASTRITIS. IMMUNOSTAINING IS NEGATIVE FOR H. PYLORI ORGANISMS. B. LIVER, BIOPSY: SUBCAPSULAR LIVER TISSUE WITH STEATOSIS (20%), DIFFUSE. NO HISTOLOGIC EVIDENCE OF HEPATITIS. NO INCREASE IN FIBROSIS (TRICHROME STAIN). IRON STAIN SHOWS FOCAL HEPATOCELLULAR SIDEROSIS WITH KUPFFER CELL SIDEROSIS, SUGGESTIVE OF SECONDARY IRON OVERLOAD. Electronically Signed Erick Miguel M.D. Gross Description A. Received in formalin, labeled "greater curvature of stomach," is a 68 gram, 17.5 x 3.0 x 2.1 cm. portion of stomach with a stapled margin of resection. The serosa is jessica-barakat with minimal attached fat. The mucosa is jessica-pink with normal folds. No mucosal masses are identified. Truck Mechanic sections are submitted in one cassette. B. Received in formalin labeled "liver biopsy," is a 1.7 x 0.5 x 0.5 cm jessica portion of soft tissue, consistent with a liver biopsy. The specimen is bisected and entirely submitted in one cassette. 03/29/201903/29/2019
== END 2019-03-29 18:10 | disposition home or self-care (01) | DRG 403 ==
LOC: FM/S 09:21
PROVIDERS: ADMIT Surgery; ATTEND Surgery
PROC: 0DNW3ZZ Release Peritoneum, Percutaneous Approach (ICD-10-PCS; 2019-03-28)
PROC: 0DB64Z3 Excision of Stomach, Percutaneous Endoscopic Approach, Vertical (ICD-10-PCS; principal; 2019-03-28 13:54)
PROC: 0FB24ZX Excision of Left Lobe Liver, Percutaneous Endoscopic Approach, Diagnostic (ICD-10-PCS; 2019-03-28 13:54)
DX: E66.01 Morbid (severe) obesity due to excess calories (principal); Z68.43 Body mass index [BMI] 50.0-59.9, adult; G47.33 Obstructive sleep apnea (adult) (pediatric); R16.0 Hepatomegaly, not elsewhere classified; K66.0 Peritoneal adhesions (postprocedural) (postinfection)
CPT/HCPCS: 36415; 74241-TC-FY; 80053; 84703; 85027; 88305-TC; 88313-TC; 94760; J0131